=== PATIENT | male | born 1995 | race American Indian/Alaskan Native ===

== ENCOUNTER 2022-06-08 17:00 | Emergency (ER) | payer MEDICAID, OTHER, SELFPAY ==
[2022-06-08 17:07] VITALS: BP 118/88; PULSE 118; RESP 22; TEMP 37.6; O2SAT 96; BMI 21.6
--- NOTE | 2022-06-08 17:21 | DI.RAD.S_ITS ---
PROCEDURE: XR HAND LT 2V INDICATIONS: wound over 5th metacarpal, sq air up hand/forearm? TECHNIQUE: 3 views of the hand(s) acquired. COMPARISON: None. FINDINGS: Bones: No fractures or dislocations. Carpal bones are normally aligned. No suspicious bony lesions. Soft tissues: No suspicious soft tissue calcifications. IMPRESSION: Unremarkable left hand radiographs Approved by: Jaron Sultana M.D. on 06/08/2022 at 16:54
--- NOTE | 2022-06-08 17:34 | PC.NURSE ---
1720 covid swab collected for possible admit and pt states how long am i gonna be here i cant be here long, i have to leave, i cant be here a couple hours explained jeff need for iv antibiotics as ordered by provider pt states i cant stay i have to go, notified primary rn and provider.
[2022-06-08 17:44] LABS: Add Manual Diff / Slide Review NO; Basophils Absolute Auto 100 /uL (0-100); Basophils Percent Auto 0.7 % (0-2); Eosinophils Absolute Auto 300 /uL (0-450); Hematocrit 38.4 % (41-53); Lymphocytes Absolute Auto 2500 /uL (1100-4500); Mean Corpuscular HGB Conc 33.7 % (30-36); Mean Corpuscular Hemoglobin 27.9 PG (26-34); Mean Corpuscular Volume 82.8 fL (80-100); Monocytes Absolute Auto 1300 /uL (0-900); Monocytes Percent Auto 9.1 % (3-14); Neutrophils Absolute Auto 10400 /uL (1500-7000); Neutrophils Percent Auto 71.2 % (50-75); Platelet Count 258 X10^3/uL (150-400); Red Blood Cell Count 4.64 X10^6/uL (4.5-5.9); Red Cell Distribution Width 15.1 % (11.6-14.8); White Blood Cell Count 14.6 X10^3/uL (4.5-11.0)
[2022-06-08] MEDS: SODIUM CHLORIDE 0.9% 1,000 ML 1000 ML IV (17:55)
[2022-06-08] MEDS: cefTRIAXone 2,000 MG in SODIUM CHLORIDE 0.9% 100 ML 200 MG IV (17:55)
[2022-06-08 17:56] LABS: Lactate (Lactic Acid) 0.9 mmol/L (0.7-2.1)
[2022-06-08] MEDS: DOXYCYCLINE HYCLATE 100 MG TABLET PO (17:58)
[2022-06-08 18:02] LABS: Alanine Aminotransferase 21 IU/L (<50); Albumin 4.4 g/dL (3.5-5.0); Albumin Globulin Ratio 1.5 (1.0-2.8); Alkaline Phosphatase 70 U/L (38-126); Aspartate Aminotransferase 32 IU/L (17-59); BUN Creatinine Ratio 23.2 (6-22); Bilirubin Total 0.7 mg/dL (0.2-1.3); Blood Urea Nitrogen 16 mg/dL (9-20); C-Reactive Protein Quant 2.2 mg/dL (<1.0); Calcium 8.7 mg/dL (8.4-10.2); Carbon Dioxide 27 mmol/L (22-32); Chloride 100 mmol/L (98-107); Creatine Kinase 576 U/L (55-170); Estimated Glomerular Filt Rate > 60 mL/min (>60); Glucose 109 mg/dL (70-100); HEMOLYSIS 18 (0-50); Magnesium 1.8 mg/dL (1.6-2.3); Potassium 3.3 mmol/L (3.4-5.1); Sodium 138 mmol/L (137-145); Total Protein 7.4 g/dL (6.3-8.2)
--- NOTE | 2022-06-08 18:08 | ED_ITS ---
HPI - Skin/Abscess/Foreign Bdy <BEATRICE Glasgow - Last Filed: 06/08/22 18:54> General Chief complaint: Skin/Abscess/Foreign Body Stated complaint: L hand spider bite with red line, sore Time Seen by Provider: 06/08/22 17:17 Source: patient Mode of arrival: Ambulatory Limitations: no limitations History of Present Illness HPI narrative: This is a 27-year-old male who presents to the emergency department complaining of a wound to his left hand on over his 5th MCP joint with a history of IV drug use and states that he is having painful redness and streaking up his hand, wrist, forearm and up to his left axilla, states it started 2 hours ago in it is very painful. When I saw him, he was anxious, acting like he wanted to go, I told him that I was very concerned for his health due to this infection and tried to convince him to stay for IV antibiotics and the concern for of bloo dstream infection. 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 He has a mild fever, tachycardia, denies history of bloodstream infections in the past. This is the 1st time he has been to this hospital. I encouraged the patient to return to the emergency department for continuation of this care after he picks up his sister and he states that he might come back. He denies nausea, vomiting chills or fever at home, states that he is had this wound for a couple of days and then today it started getting worse. Related Data Previous Rx's Medication Instructions Recorded cephalexin 500 mg capsule 500 mg PO QID 8 days #32 caps 06/08/22 doxycycline hyclate 100 mg capsule 100 mg PO BID 10 days #20 caps 06/08/22 Allergies Allergy/AdvReac Type Severity Reaction Status Date / Time No Known Drug Allergies Allergy Verified 06/08/22 17:10 Review of Systems <BEATRICE Glasgow - Last Filed: 06/08/22 18:54> Review of Systems ROS Unobtainable: All systems reviewed & are unremarkable except as noted in HPI and below Patient History <BEATRICE Glasgow - Last Filed: 06/08/22 18:54> Social History Smoking Status: Current every day smoker Smoking Status: Current every day smoker tobacco type: cigarettes alcohol intake frequency: 0-2 drinks per day Substance Use Type: opiates and methamphetamine Exam <BEATRICE Glasgow - Last Filed: 06/08/22 18:54> Narrative Exam Narrative: Reviewed vitals signs and nursing notes. General: cooperative, withdrawn, does not appear in distress, has multiple areas of skin excoriation and wounds, without diaphoresis HEENT: symmetrical facial expressions, dry mucous membranes Cardiovascular: Tachycardic rate and rhythm without murmur, no peripheral edema, warm extremities Respiratory: Mild tachypnea without increased work of breathing, breath sounds are clear throughout MSK: moves all extremities, neurovascularly intact, no weakness, normal tone, bilateral arms, wrist and fingers with full range of motion including flexion- extension Skin: brisk capillary refill, without pallor, there is a wound over the 5th MCP joint on the dorsum, there is erythema streaking up the medial aspect of his wrist, forearm, upper arm and into his axilla with tenderness, this is concerning for lymphangitis/phlebitis, and ascending skin infection, wound does not have fluctuance, there is no purulence drainage, mild cellulitis surrounding Neuro: normal speech and cognition, A&O x3, ambulatory, clear speech Psych: mental status is grossly normal, congruent mood, normal affect, pleasant and cooperative Initial Vital Signs Initial Vital Signs: Vital Signs Temperature 99.6 F 06/08/22 17:07 Pulse Rate 118 H 06/08/22 17:07 Respiratory Rate 22 06/08/22 17:07 Blood Pressure 118/88 06/08/22 17:07 Pulse Oximetry 96 06/08/22 17:07 Oxygen Delivery Method 06/08/22 17:07 <Anthony Vincent DO - Last Filed: 06/09/22 07:08> Initial Vital Signs Initial Vital Signs: Vital Signs Temperature 99.6 F 06/08/22 17:07 Pulse Rate 118 H 06/08/22 17:07 Respiratory Rate 22 06/08/22 17:07 Blood Pressure 118/88 06/08/22 17:07 Pulse Oximetry 96 06/08/22 17:07 Oxygen Delivery Method 06/08/22 17:07 Course <MAR GlasgowP - Last Filed: 06/08/22 18:54> Orders Ordered: Discontinued Medications Doxycycline Hyclate (Doxycycline Hyclate 100 Mg Tablet) 100 mg PO NOW ONE Stop: 06/08/22 17:34 Last Admin: 06/08/22 17:58 Dose: 100 mg Documented By: NR Hydromorphone HCl (Hydromorphone 0.5 Mg Inj) 0.5 mg IV Q1H PRN PRN Reason: pain Ceftriaxone Sodium 2,000 mg/ (Sodium Chloride) 100 mls @ 200 mls/hr IV NOW ONE Stop: 06/08/22 17:22 Last Infusion: 06/08/22 18:08 Dose: 0 mls/hr Documented By: Admin: 06/08/22 17:55 Dose: 200 mls/hr Documented By: NR Sodium Chloride (Normal Saline 0.9%) 1,000 mls @ 1,000 mls/hr IV BOLUS ONE Stop: 06/08/22 18:24 Last Infusion: 06/08/22 18:28 Dose: 0 mls/hr Documented By: Admin: 06/08/22 17:55 Dose: 1,000 mls/hr Documented By: NR Oxycodone/Acetaminophen (Oxycodone/Acetaminophen 5/325 Tablet) 1 tab PO NOW ONE Stop: 06/08/22 17:25 Last Admin: 06/08/22 18:01 Dose: Not Given Documented By: NR Vancomycin HCl (Vancomycin Per Pharmacy) 1 request MISC NOW ONE Stop: 06/08/22 17:22 Vital Signs Vital signs: Vital Signs - 8 hr 06/08/22 17:07 Temperature 99.6 F Pulse Rate 118 H Respiratory Rate 22 Blood Pressure 118/88 Pulse Oximetry 96 Oxygen Delivery Method Room Air <Anthony Vincent DO - Last Filed: 06/09/22 07:08> Orders Ordered: Discontinued Medications Doxycycline Hyclate (Doxycycline Hyclate 100 Mg Tablet) 100 mg PO NOW ONE Stop: 06/08/22 17:34 Last Admin: 06/08/22 17:58 Dose: 100 mg Documented By: NR Hydromorphone HCl (Hydromorphone 0.5 Mg Inj) 0.5 mg IV Q1H PRN PRN Reason: pain Ceftriaxone Sodium 2,000 mg/ (Sodium Chloride) 100 mls @ 200 mls/hr IV NOW ONE Stop: 06/08/22 17:22 Last Infusion: 06/08/22 18:08 Dose: 0 mls/hr Documented By: Admin: 06/08/22 17:55 Dose: 200 mls/hr Documented By: NR Sodium Chloride (Normal Saline 0.9%) 1,000 mls @ 1,000 mls/hr IV BOLUS ONE Stop: 06/08/22 18:24 Last Infusion: 06/08/22 18:28 Dose: 0 mls/hr Documented By: Admin: 06/08/22 17:55 Dose: 1,000 mls/hr Documented By: NR Oxycodone/Acetaminophen (Oxycodone/Acetaminophen 5/325 Tablet) 1 tab PO NOW ONE Stop: 06/08/22 17:25 Last Admin: 06/08/22 18:01 Dose: Not Given Documented By: NR Vancomycin HCl (Vancomycin Per Pharmacy) 1 request MISC NOW ONE Stop: 06/08/22 17:22 Vital Signs Vital signs: Vital Signs - 8 hr 06/08/22 17:07 Temperature 99.6 F Pulse Rate 118 H Respiratory Rate 22 Blood Pressure 118/88 Pulse Oximetry 96 Oxygen Delivery Method Room Air MDM - Skin/Abscess/Foreign Bdy <BEATRICE Glasgow - Last Filed: 06/08/22 18:54> Lab Data 06/08/22 17:26 06/08/22 17:26 Labs: Lab Results 06/08/22 06/08/22 06/08/22 Range/Units 17:26 17:26 17:26 WBC 14.6 H (4.5-11.0) X10^3/uL RBC 4.64 (4.5-5.9) X10^6/uL Hgb 13.0 L (13.5-17.5) g/dL Hct 38.4 L (41-53) % MCV 82.8 (80-100) fL MCH 27.9 (26-34) PG MCHC 33.7 (30-36) % RDW 15.1 H (11.6-14.8) % Plt Count 258 (150-400) X10^3/uL Neut % (Auto) 71.2 (50-75) % Lymph % (Auto) 17.0 L (25-40) % [place] % (Auto) 9.1 (3-14) % Eos % (Auto) 2.0 (2-4) % Baso % (Auto) 0.7 (0-2) % Neut # (Auto) 26137 H (3258-1815) /uL Lymph # (Auto) 2500 (3218-0600) /uL [place] # (Auto) 1300 H (0-900) /uL Eos # (Auto) 300 (0-450) /uL Baso # (Auto) 100 (0-100) /uL ESR (0-15) MM/HR Sodium 138 (137-145) mmol/L Potassium 3.3 L (3.4-5.1) mmol/L Chloride 100 (98-107) mmol/L Carbon Dioxide 27 (22-32) mmol/L BUN 16 (9-20) mg/dL Creatinine 0.69 (0.66-1.25) mg/dL Estimated GFR > 60 (>60) mL/min BUN/Creatinine Ratio 23.2 H (6-22) Glucose 109 H (70-100) mg/dL Lactate 0.9 (0.7-2.1) mmol/L Calcium 8.7 (8.4-10.2) mg/dL Magnesium 1.8 (1.6-2.3) mg/dL Total Bilirubin 0.7 (0.2-1.3) mg/dL AST 32 (17-59) IU/L ALT 21 (<50) IU/L Alkaline Phosphatase 70 (38-126) U/L Total Creatine Kinase 576 H (55-170) U/L CK-MB (CK-2) 4.30 H (<2.37) ng/mL CK-MB (CK-2) Rel Index 0.7 L (1.5-5.0) % Troponin I < 0.012 (0.01-0.034) ng/mL C-Reactive Protein 2.2 H (<1.0) mg/dL Total Protein 7.4 (6.3-8.2) g/dL Albumin 4.4 (3.5-5.0) g/dL Globulin 3.0 (1.7-4.1) g/dL Albumin/Globulin Ratio 1.5 (1.0-2.8) Procalcitonin 0.07 (<0.5) ng/mL 06/08/22 Range/Units 17:26 WBC (4.5-11.0) X10^3/uL RBC (4.5-5.9) X10^6/uL Hgb (13.5-17.5) g/dL Hct (41-53) % MCV (80-100) fL MCH (26-34) PG MCHC (30-36) % RDW (11.6-14.8) % Plt Count (150-400) X10^3/uL Neut % (Auto) (50-75) % Lymph % (Auto) (25-40) % [place] % (Auto) (3-14) % Eos % (Auto) (2-4) % Baso % (Auto) (0-2) % Neut # (Auto) (3691-8712) /uL Lymph # (Auto) (4641-9581) /uL [place] # (Auto) (0-900) /uL Eos # (Auto) (0-450) /uL Baso # (Auto) (0-100) /uL ESR 8 (0-15) MM/HR Sodium (137-145) mmol/L Potassium (3.4-5.1) mmol/L Chloride (98-107) mmol/L Carbon Dioxide (22-32) mmol/L BUN (9-20) mg/dL Creatinine (0.66-1.25) mg/dL Estimated GFR (>60) mL/min BUN/Creatinine Ratio (6-22) Glucose (70-100) mg/dL Lactate (0.7-2.1) mmol/L Calcium (8.4-10.2) mg/dL Magnesium (1.6-2.3) mg/dL Total Bilirubin (0.2-1.3) mg/dL AST (17-59) IU/L ALT (<50) IU/L Alkaline Phosphatase (38-126) U/L Total Creatine Kinase (55-170) U/L CK-MB (CK-2) (<2.37) ng/mL CK-MB (CK-2) Rel Index (1.5-5.0) % Troponin I (0.01-0.034) ng/mL C-Reactive Protein (<1.0) mg/dL Total Protein (6.3-8.2) g/dL Albumin (3.5-5.0) g/dL Globulin (1.7-4.1) g/dL Albumin/Globulin Ratio (1.0-2.8) Procalcitonin (<0.5) ng/mL Imaging Data Extremity x-ray #1: Radiologist's Impression: [address] [address] XRay Report Signed Patient: Kareem Yeager MR#: [id number] : 1995 Acct:[id number] Age/Sex: 27 / M Date of Service: 06/08/22 Loc: ED Accession Number: [id number] ?? Procedure: XR hand LT 2V Ordering Provider: Tammy Oliva PROCEDURE:? XR HAND LT 2V ? INDICATIONS:? wound over 5th metacarpal, sq air up hand/forearm? ? TECHNIQUE:? 3 views of the hand(s) acquired.? ? COMPARISON:? None. ? FINDINGS:? ? Bones:? No fractures or dislocations.? Carpal bones are normally aligned.? No suspicious bony lesions.? ? Soft tissues:? No suspicious soft tissue calcifications.? ? ? IMPRESSION:? Unremarkable left hand radiographs ? ? ? Approved by: Jaron Sultana M.D. on 06/08/2022 at 16:54? Treatment and disposition Social Determinants of Health that impact treatment or disposition: Patient's history of substance abuse, refusing to stay in the hospital for ongoing care MDM Narrative Medical decision making narrative: Chief Complaint: Wound with redness and streaking up the arm Differential diagnoses include but are not limited to: Ascending lymphangitis secondary to bacterial infection, bacteremia, cellulitis, abscess, MRSA, sepsis with skin sores I have reviewed the patient's vital signs and nursing notes as well as prior records if available. Independently reviewed imaging including: Hand x-rays negative for subcutaneous air Clinical decision rules or scores evaluated: Sepsis criteria SIRS, Sepsis, and Septic Shock Criteria from [email or web address] on 06/08/2022. This patient meets severe sepsis criteria. INPUTS: Temp >38&deg;C (100.4&deg;F) or <36&deg;C (96.8&deg;F) ?> 0 = No Heart rate >90 ?> 1 = Yes Respiratory rate >20 or Nydia? <32 mm Hg ?> 1 = Yes WBC >12,000/mm&sup3;, <4,000/mm&sup3;, or >10% bands ?> 1 = Yes Suspected or present source of infection ?> 1 = Yes Lactic acidosis, SBP <90 or SBP drop &ge;40 mm Hg of normal ?> 1 = Yes Severe sepsis with hypotension, despite adequate fluid resuscitation ?> 0 = No Evidence of &ge;2 organs failing ?> 0 = No Pertinent laboratory tests reviewed: Patient has moderate leukocytosis of 14.6 with a left shift, mild hypokalemia of 3.3, BUN elevation at 23.2, no lactic acidosis, total CK 576, CRP of 2.2 Course of care and re-evaluations: Patient refuses to stay in the hospital due to needing to be somewhere shortly. He allowed for lab draw, IV ceftriaxone, p.o. doxycycline and Percocet for pain. He has a left hand wound source of infection, meet sepsis criteria for severe sepsis with tachycardia, leukocytosis, fever, tachypnea Wanted to treat for strep, staph, and resistant bacteria and other high-risk bacteria. Discussion: Patient hopefully return to the hospital for ongoing care although this is unlikely. He was prescribed doxycycline and cephalexin q.i.d. times 8- 10 days for treatment of this. We will follow-up on blood cultures, he was drinking water and provided 2 cups of water for hydration. I wanted to give him IV fluid however he did not want to wait for this. He is p.o. tolerant, not toxic appearing. His ascending skin infection was treated with doxycycline and cephalexin as an outpatient, encouraged him to return to the emergency department. Blood cultures are pending, will follow-up on this, likely MRSA or other bacteremia. Social considerations that may affect disposition: Multiple related to substance abuse Questions are addressed and there is agreement with the plan and for follow-up. Patient is appropriate for outpatient management. MIPS: This encounter doesn't have any diagnosis' associated with MIPS criteria. <Anthony Vincent DO - Last Filed: 06/09/22 07:08> Lab Data Labs: Lab Results 06/08/22 06/08/22 06/08/22 Range/Units 17:26 17:26 17:26 WBC 14.6 H (4.5-11.0) X10^3/uL RBC 4.64 (4.5-5.9) X10^6/uL Hgb 13.0 L (13.5-17.5) g/dL Hct 38.4 L (41-53) % MCV 82.8 (80-100) fL MCH 27.9 (26-34) PG MCHC 33.7 (30-36) % RDW 15.1 H (11.6-14.8) % Plt Count 258 (150-400) X10^3/uL Neut % (Auto) 71.2 (50-75) % Lymph % (Auto) 17.0 L (25-40) % [place] % (Auto) 9.1 (3-14) % Eos % (Auto) 2.0 (2-4) % Baso % (Auto) 0.7 (0-2) % Neut # (Auto) 25783 H (1954-1408) /uL Lymph # (Auto) 2500 (7624-2075) /uL [place] # (Auto) 1300 H (0-900) /uL Eos # (Auto) 300 (0-450) /uL Baso # (Auto) 100 (0-100) /uL ESR (0-15) MM/HR Sodium 138 (137-145) mmol/L Potassium 3.3 L (3.4-5.1) mmol/L Chloride 100 (98-107) mmol/L Carbon Dioxide 27 (22-32) mmol/L BUN 16 (9-20) mg/dL Creatinine 0.69 (0.66-1.25) mg/dL Estimated GFR > 60 (>60) mL/min BUN/Creatinine Ratio 23.2 H (6-22) Glucose 109 H (70-100) mg/dL Lactate 0.9 (0.7-2.1) mmol/L Calcium 8.7 (8.4-10.2) mg/dL Magnesium 1.8 (1.6-2.3) mg/dL Total Bilirubin 0.7 (0.2-1.3) mg/dL AST 32 (17-59) IU/L ALT 21 (<50) IU/L Alkaline Phosphatase 70 (38-126) U/L Total Creatine Kinase 576 H (55-170) U/L CK-MB (CK-2) 4.30 H (<2.37) ng/mL CK-MB (CK-2) Rel Index 0.7 L (1.5-5.0) % Troponin I < 0.012 (0.01-0.034) ng/mL C-Reactive Protein 2.2 H (<1.0) mg/dL Total Protein 7.4 (6.3-8.2) g/dL Albumin 4.4 (3.5-5.0) g/dL Globulin 3.0 (1.7-4.1) g/dL Albumin/Globulin Ratio 1.5 (1.0-2.8) Procalcitonin 0.07 (<0.5) ng/mL 06/08/22 Range/Units 17:26 WBC (4.5-11.0) X10^3/uL RBC (4.5-5.9) X10^6/uL Hgb (13.5-17.5) g/dL Hct (41-53) % MCV (80-100) fL MCH (26-34) PG MCHC (30-36) % RDW (11.6-14.8) % Plt Count (150-400) X10^3/uL Neut % (Auto) (50-75) % Lymph % (Auto) (25-40) % [place] % (Auto) (3-14) % Eos % (Auto) (2-4) % Baso % (Auto) (0-2) % Neut # (Auto) (1702-5777) /uL Lymph # (Auto) (1528-3725) /uL [place] # (Auto) (0-900) /uL Eos # (Auto) (0-450) /uL Baso # (Auto) (0-100) /uL ESR 8 (0-15) MM/HR Sodium (137-145) mmol/L Potassium (3.4-5.1) mmol/L Chloride (98-107) mmol/L Carbon Dioxide (22-32) mmol/L BUN (9-20) mg/dL Creatinine (0.66-1.25) mg/dL Estimated GFR (>60) mL/min BUN/Creatinine Ratio (6-22) Glucose (70-100) mg/dL Lactate (0.7-2.1) mmol/L Calcium (8.4-10.2) mg/dL Magnesium (1.6-2.3) mg/dL Total Bilirubin (0.2-1.3) mg/dL AST (17-59) IU/L ALT (<50) IU/L Alkaline Phosphatase (38-126) U/L Total Creatine Kinase (55-170) U/L CK-MB (CK-2) (<2.37) ng/mL CK-MB (CK-2) Rel Index (1.5-5.0) % Troponin I (0.01-0.034) ng/mL C-Reactive Protein (<1.0) mg/dL Total Protein (6.3-8.2) g/dL Albumin (3.5-5.0) g/dL Globulin (1.7-4.1) g/dL Albumin/Globulin Ratio (1.0-2.8) Procalcitonin (<0.5) ng/mL Discharge Plan Departure Patient Disposition: Home Clinical Impression: Complicated wound infection, Cellulitis, Lymphangitis Instructions: DI for Wound Infection, DI for Lymphangitis-Adult Activity Restrictions/Additional Instructions: *You have been diagnosed with a concerning wound infection that is spreading. After you pick pulling machine operator your sister, please pick pulling machine operator your medications at [facility] and come back to emergency department for further care. You may start to feel better initially but I am very worried about how it the redness going up your ar m is concerning for a bloodstream infection and oral antibiotics are not always adequate. Please come back any time for another evaluation and bring paperwork. We will call you if you need a different antibiotic and will send a different one to your pharmacy as needed. *What to do: *Please continue to take your regular medications as directed. [x ] New medication prescriptions sent to your pharmacy: [[facility] ] [ ] New medication written as a paper prescription [ ] No new medications given *Please follow up with your primary care provider in 2-3 days, call for an appointment. Let them know you were seen in the Emergency Department and that we asked that you be seen for follow-up. We will electronically transmit a record of today's note if your PCP is in our system *If you do not have a primary care provider please contact [phone] to establish care with one of the [facility] primary care providers. *Return to Emergency Department if you should have any new, worsening, or concerning symptoms, such as [fever greater than 101F, chills, worsening pain, persistent vomiting or other bothersome symptoms]. Prescriptions: New cephalexin 500 mg capsule 500 mg PO QID 8 Days Qty: 32 0RF doxycycline hyclate 100 mg capsule 100 mg PO BID 10 Days Qty: 20 0RF Stand Alone Forms: Patient Portal/API <Anthony Vincent, DO - Last Filed: 06/09/22 07:08> Cosign ED Attending Cosignature Attestation: Dr Vincent Co-Sign Statement: I was available for consultation during this patient's emergency department visit. This chart is signed by myself for administrative purposes only. I did not have direct contact with this patient during this visit. They were seen independently by the APC.
[2022-06-08 18:48] LABS: Erythrocyte Sedimentation Rate 8 MM/HR (0-15)
[2022-06-08 18:53] LABS: CKMB % Relative Index 0.7 % (1.5-5.0); Troponin I < 0.012 ng/mL (0.01-0.034)
[2022-06-08 18:58] LABS: Procalcitonin 0.07 ng/mL (<0.5)
== END 2022-06-08 18:34 | disposition home or self-care (01) ==
PROVIDERS: Emergency Provider Nurse Practitioner Critical Care Medicine
DX: L03.114 Cellulitis of left upper limb (principal)
CPT/HCPCS: 36415; 73120; 80053; 82550; 82553; 83605; 83735; 84145; 84484; 85025; 85651; 86140; 87040; 96361; 96374; 99284; J0696